=== PATIENT | female | born 1950 | race Caucasian/White ===

== ENCOUNTER → 2019-03-30 13:50 | Outpatient (CLI) | payer MEDICARE, SELFPAY ==
[2019-03-30 13:00] VITALS: BMI 43.0
--- NOTE | 2019-03-30 13:51 | RAD_ITS ---
STUDY: X-RAY CHEST REASON FOR EXAM: Female, 69 years old. History of left breast cancer. TECHNIQUE: Frontal and lateral views of the chest COMPARISON: None. FINDINGS: The lungs are clear. There are no pleural effusions. There is no pneumothorax. The heart is normal in size. The visualized osseous structures are within normal limits. RAD/Chest PA and Lateral IMPRESSION: No acute thoracic pathology. Please note that chest radiographs cannot exclude pulmonary nodules. Electronically Signed: Jamar Wright, at 17:26 EDT Tel , Service support ,
== END ==
PROVIDERS: Family Provider Internal Medicine; PCP Internal Medicine; Referring Provider Internal Medicine Medical Oncology; Visit Provider Internal Medicine Medical Oncology
DX: C50.912 Malignant neoplasm of unspecified site of left female breast (principal)
CPT/HCPCS: 71046

== ENCOUNTER 2021-09-13 17:45 | Emergency (ER) | payer MEDICARE, SELFPAY ==
[2021-09-13 17:46] VITALS: BP 104/71; PULSE 95; RESP 16; TEMP 36; O2SAT 93; BMI 42.5
[2021-09-13 18:12] LABS: Absolute Lymphocyte Count 0.52 X10^3/uL (0.83-4.51); Absolute Neutrophil Count 6.7 X10^3/uL (2.0-7.7); Basophil# 0.02 X10^3/uL; Basophil% 0.3 % (0-1); Hematocrit 32.1 % (37-47); Lymphocyte # 0.52 X10^3/ul (0.83-4.51); Lymphocyte % 6.8 % (19-41); Mean Corp Hgb Conc 34.3 g/dL (32-36); Mean Corpuscular Hgb 28.9 pg (27.0-32.0); Mean Corpuscular Volume 84.3 fL (81-99); Mean Platelet Vol. 10.1 fl (6.2-12.0); Monocyte# 0.33 X10^3/uL; Monocyte% 4.3 % (0-10); NRBC Flagged by Analyzer 0 % (0-5); Neutrophil # 6.73 X10^3/uL (2.7-7.7); Neutrophil % 87.8 % (47-70); POSITIVE DIFFERENTIAL YES; Platelet Count 270 K/mm3 (150-450); RBC Distribution Width CV 12.7 % (11.6-14.6); RBC Distribution Width SD 39.4 fl (35.1-43.9); Red Blood Count 3.81 M/mm3 (4.2-5.4); White Blood Count 7.7 K/mm3 (4.4-11.0)
--- NOTE | 2021-09-13 18:13 | RAD_ITS ---
STUDY: X-RAY CHEST REASON FOR EXAM: Female, 71 years old. Shortness breath. History of breast cancer. TECHNIQUE: Single AP portable view of the chest. COMPARISON: 03/30/2019. FINDINGS: The lungs are well-expanded. There is coarsened interstitial markings. Minimal infiltrate versus atelectasis at both lung bases. There is no demonstrated pleural abnormality. Normal size heart. Normal mediastinum and juvencio. Normal visualized pulmonary arteries. There is atherosclerotic calcification of the aortic arch with tortuosity. There are diffuse degenerative changes of the visualized thoracic spine. There is degenerative osteoarthritis of the bilateral shoulders. There is no demonstrated abnormality of the visualized soft tissue structures of the upper abdomen. RAD/Chest 1 View IMPRESSION: Atelectatic changes versus minimal infiltrate at the lung bases. The study is otherwise unchanged.. Electronically Signed: Chan Sheets DO at 18:44 EDT Tel [phone], Service support ,
[2021-09-13 18:15] LABS: Bedside Glucose 226 mg/dL (70-110)
[2021-09-13 18:33] LABS: ALB/GLOB Ratio 0.7 RATIO (0.9-2.4); AST(SGOT) 35 U/L (15-37); Alanine Aminotransfer ALT/SGPT 27 U/L (13-56); Alkaline Phosphatase 52 U/L (45-117); Anion Gap 8 (5-15); BUN 15 mg/dL (7-18); BUN/Creat Ratio 15.4 RATIO (10-20); Calcium,Total 8.9 mg/dL (8.5-10.1); Chloride 98 mmol/L (98-107); Creatinine, Serum 0.98 mg/dL (0.55-1.02); EST Glomerular Filtration Rate 60 mL/min (>60); Est Glom Filt Rate - Afr Amer 72 mL/min (>60); Estimated Creatinine Clearance 43.56 ml/min; Globulin 4.6 g/dL (2.2-4.2); Glucose 200 mg/dL (74-106); Potassium 3.5 mmol/L (3.5-5.1); Protein, Total 7.6 g/dL (6.4-8.2); Sodium Level 131 mmol/L (136-145)
[2021-09-13 18:36] LABS: Differential Indicated SCAN CRITERIA MET
[2021-09-13 18:58] LABS: Differential Comment SCANNED
[2021-09-13 19:09] VITALS: O2SAT 94
[2021-09-13 19:55] VITALS: O2SAT 94
--- NOTE | 2021-09-13 20:06 | EX.ED.DYSGE1 ---
HPI History of Present Illness Chief Complaint: General Illness Narrative Narrative: 71-year-old female on day 7 of Covid type symptoms. She has generalized weakness and a cough. Her fevers have resolved. She does complain of decreased sense of taste and smell. Patient was vaccinated for COVID-19. She not have any chest pain. She does report that she feels weak but is able to get up and ambulate about. She states she does not go very long distances. PFSH [facility] Medical History Anemia Breast cancer Diabetes mellitus Hyperlipidemia Hypertension Hypothyroidism Left breast sentinel nodes/re-excision Osteopenia Right finger surgery Vision problems Vitamin deficiency Home Medications Calcium 600-Vit D3 200 Tablet 600 mg PO BID 02/12/17 [History Last Taken Unknown] aspirin [Aspir-Low] 81 mg PO DAILY 02/12/17 [History Last Taken Unknown] bisoprolol-hydrochlorothiazide 1 tab PO DAILY 02/12/17 [History Last Taken Unknown] cyanocobalamin (vitamin B-12) [Vitamin B-12] 1,000 mcg PO DAILY 02/12/17 [History Last Taken Unknown] ferrous sulfate [Iron] 325 mg PO DAILY 02/12/17 [History Last Taken Unknown] levothyroxine 125 mcg PO DAILY 02/12/17 [History Last Taken Unknown] metformin 850 mg PO BIDCM 02/12/17 [History Last Taken Unknown] simvastatin [Zocor] 80 mg PO DAILY 02/12/17 [History Last Taken Unknown] Victoza 2-Kwesi 1.2 mg IM DAILY 03/06/17 [History Last Taken Unknown] ascorbic acid (vitamin C) [Vitamin C with Theodora Hips] 500 mg PO DAILY 03/06/17 [History Last Taken Unknown] lisinopril [Zestril] 10 mg PO DAILY 03/30/19 [History Last Taken Unknown] meloxicam [Mobic] 15 mg PO DAILY 03/30/19 [History Last Taken Unknown] Allergy/AdvReac Type Severity Reaction Status Date / Time No Known Allergies Allergy Verified 09/13/21 17:46 Family History Mother Breast cancer CVA (cerebral vascular accident) Arthritis Hyperlipidemia Father Prostate cancer Leukemia Hypertension Surgical History History of cataract extraction History of hand surgery History of lumpectomy History of tubal ligation Hx of section S/P bunionectomy Social History Smoking Status: Never smoker ROS ROS ED Constitutional Constitutional ED: Reports chills and fever(s) Eyes Eyes: Denies blurry vision or diplopia ENT ENT ED: Denies rhinorrhea or sore throat Cardiovascular Cardiovascular: Denies chest pain or palpitations Respiratory/Chest Respiratory/Chest: Reports cough, dyspnea and dyspnea on exertion Gastrointestinal Gastrointestinal: Denies abdominal pain, nausea or vomiting Genitourinary Genitourinary ED: Denies dysuria or hematuria Musculoskeletal Musculoskeletal: Reports myalgias; Denies arthralgias, back pain or neck pain Integumentary Denies rash Neurologic Neurologic: Reports headache(s); Denies paresthesias EXAM Physical Exam Const Vital Signs: 09/13/21 17:46 09/13/21 19:55 Temperature 96.8 F L Temperature Source Temporal Pulse Rate 95 Respiratory Rate 16 Blood Pressure 104/71 Blood Pressure Mean 82 Pulse Ox 93 94 Oxygen Delivery Method Room Air Positive well nourished General Appearance ED: NAD; Negative for pallor HEENT Reports moist mucous membranes Negative for trauma Eyes PERRL and EOMs intact bilaterally Chest Wall inspection of chest normal and palpation of chest normal Resp normal respiratory effort and clear to auscultation bilaterally Cardio regular rate and regular rhythm Neuro oriented x3, CN's II-XII intact bilaterally and no sensory deficits noted Sensorium / Orientation: alert Motor Exam: strength 5/5 throughout Psych mental status grossly normal Skin General Skin Exam: Negative for jaundice or pallor MDM MDM MDM Narrative Medical decision making narrative: Patient presenting on day 7 of Covid symptoms. Her fevers have resolved. She does have decreased sense of taste and smell. Her pulse ox was 93 initially. She is ambulated in the emergency room and her pulse ox does not drop below 91. She is able to ambulate stably. CBC shows that her white blood cell count is 7.7, hemoglobin 11.0, hematocrit 32.1, platelets 270. Renal function and electrolytes are normal. LFTs are normal. Chest x-ray on my interpretation does not appear to show any acute interval changes. Covid testing is positive. The radiologist does agree. Given that the patient is not requiring oxygen I believe she will be safe to be discharged home. She is counseled to monitor her pulse ox at home. She is also counseled to get up and walk around as she can tolerate. Will be referred for monoclonal antibodies. Patient given return precautions. Patient stable for discharge. Impression: 1. COVID-19 pneumonitis 2. Generalized weakness Lab Data Attestation: I reviewed the patient's lab results. Labs: Laboratory Results - last 24 hr 09/13/21 09/13/21 09/13/21 18:00 18:00 18:08 WBC 7.7 RBC 3.81 L Hgb 11.0 L Hct 32.1 L MCV 84.3 MCH 28.9 MCHC 34.3 RDW Std Deviation 39.4 RDW Coeff of Meme 12.7 Plt Count 270 MPV 10.1 Immature Gran % (Auto) 0.800 Neut % (Auto) 87.8 H Lymph % (Auto) 6.8 L [place] % (Auto) 4.3 Eos % (Auto) 0.0 Baso % (Auto) 0.3 Absolute Neuts (auto) 6.7 Absolute Lymphs (auto) 0.52 L Nucleated RBC % 0 Differential Comment SCANNED Sodium 131 L Potassium 3.5 Chloride 98 Carbon Dioxide 25.0 Anion Gap 8 BUN 15 Creatinine 0.98 Estim Creat Clear Calc 43.56 Est GFR (MDRD) Af Amer 72 Est GFR (MDRD) Non-Af 60 BUN/Creatinine Ratio 15.4 Glucose 200 H Calcium 8.9 Total Bilirubin 0.70 AST 35 ALT 27 Alkaline Phosphatase 52 Total Protein 7.6 Albumin 3.0 L Globulin 4.6 H Albumin/Globulin Ratio 0.7 L POC Glucose 226 H Radiography Diagnostic Testing: Clinical Impression(s) from Imaging Studies Chest X-Ray 09/13/21 18:13 IMPRESSION: Atelectatic changes versus minimal infiltrate at the lung bases. The study is otherwise unchanged.. Electronically Signed: Chan Sheets DO at 18:44 EDT Tel [phone], Service support , Discharge Plan Triage Chief Complaint: General Illness ED Provider: Jerry Irving Dx/Rx/DC Orders Instructions: Coronavirus Disease 2019 (COVID-19): Caring for Yourself or Others Prescriptions: No Action metformin 850 MG tablet 850 mg PO BIDCM RF: 0 cyanocobalamin (vitamin B-12) [Vitamin B-12] 1,000 MCG tablet 1,000 mcg PO DAILY RF: 0 bisoprolol-hydrochlorothiazide 1 TAB tablet 1 tab PO DAILY RF: 0 simvastatin [Zocor] 80 MG tablet 80 mg PO DAILY RF: 0 aspirin [Aspir-Low] 81 MG tablet,delayed release (DR/EC) 81 mg PO DAILY RF: 0 ferrous sulfate [Iron (ferrous sulfate)] 325 MG tablet 325 mg PO DAILY RF: 0 levothyroxine 125 MCG tablet 125 mcg PO DAILY RF: 0 Calcium 600-Vit D3 200 Tablet 600 MG tablet 600 mg PO BID RF: 0 Victoza 2-Kwesi 1.2 mg IM DAILY RF: 0 ascorbic acid (vitamin C) [Vitamin C With Theodora Hips] 500 MG tablet 500 mg PO DAILY RF: 0 meloxicam [Mobic] 15 MG tablet 15 mg PO DAILY RF: 0 lisinopril [Zestril] 10 MG tablet 10 mg PO DAILY RF: 0 Other Ambulatory Orders: COVID Outpatient Monoclonal Antibody Referral (Routine) Timeframe: 1 Day Facility: [facility] - Location: [facility] Ordered By: Dr. Jerry Irving Primary Care Provider: Jamie Quiroz Referrals: Jamie Quiroz MD [Primary Care Provider] - Disposition Disposition: Home, Self Care
== END 2021-09-13 20:13 | disposition home or self-care (01) ==
PROVIDERS: Emergency Provider Student in an Organized Health Care Education/Training Program; PCP Internal Medicine
DX: U07.1 COVID-19 (principal); J12.82 Pneumonia due to coronavirus disease 2019; R53.1 Weakness; E11.9 Type 2 diabetes mellitus without complications; I10 Essential (primary) hypertension; D64.9 Anemia, unspecified; E78.5 Hyperlipidemia, unspecified; E03.9 Hypothyroidism, unspecified; M85.80 Other specified disorders of bone density and structure, unspecified site; Z79.82 Long term (current) use of aspirin; Z79.84 Long term (current) use of oral hypoglycemic drugs; Z79.1 Long term (current) use of non-steroidal anti-inflammatories (NSAID); Z79.890 Hormone replacement therapy; Z79.899 Other long term (current) drug therapy
CPT/HCPCS: 71045; 80053; 82962; 85025; 87426; 99283

== ENCOUNTER 2021-09-14 09:53 | Emergency (ER) | payer MEDICARE, SELFPAY ==
[2021-09-14 09:55] VITALS: BP 117/70; PULSE 79; RESP 20; TEMP 35.9; O2SAT 91; BMI 41.1
[2021-09-14 10:15] VITALS: O2SAT 93
--- NOTE | 2021-09-14 10:19 | EDS_ITS ---
HPI History of Present Illness Chief Complaint: Shortness of Breath Informant: patient Narrative Narrative: 71-year-old female presenting on day 8 of Covid symptoms. Patient was diagnosed with Covid last night. She was referred for monoclonal antibody treatment. They called today and talked with her. She noted that her pulse ox was low in the 86-88 range. Patient notes that she has fake nails on. She does not feel any different than she did last night. Last night she had a chest x- ray that was read as atelectatic changes versus minimal infiltrate at the lung bases. Her blood work was negative. [facility] Medical History Anemia Breast cancer Diabetes mellitus Hyperlipidemia Hypertension Hypothyroidism Left breast sentinel nodes/re-excision Osteopenia Right finger surgery Vision problems Vitamin deficiency Home Medications Calcium 600-Vit D3 200 Tablet 600 mg PO BID 02/12/17 [History Last Taken Unknown] aspirin [Aspir-Low] 81 mg PO DAILY 02/12/17 [History Last Taken Unknown] bisoprolol-hydrochlorothiazide 1 tab PO DAILY 02/12/17 [History Last Taken Unknown] cyanocobalamin (vitamin B-12) [Vitamin B-12] 1,000 mcg PO DAILY 02/12/17 [History Last Taken Unknown] ferrous sulfate [Iron] 325 mg PO DAILY 02/12/17 [History Last Taken Unknown] levothyroxine 125 mcg PO DAILY 02/12/17 [History Last Taken Unknown] metformin 850 mg PO BIDCM 02/12/17 [History Last Taken Unknown] simvastatin [Zocor] 80 mg PO DAILY 02/12/17 [History Last Taken Unknown] Victoza 2-Kwesi 1.2 mg IM DAILY 03/06/17 [History Last Taken Unknown] ascorbic acid (vitamin C) [Vitamin C with Theodora Hips] 500 mg PO DAILY 03/06/17 [History Last Taken Unknown] lisinopril [Zestril] 10 mg PO DAILY 03/30/19 [History Last Taken Unknown] meloxicam [Mobic] 15 mg PO DAILY 03/30/19 [History Last Taken Unknown] Allergy/AdvReac Type Severity Reaction Status Date / Time No Known Allergies Allergy Verified 09/14/21 09:58 Family History Mother Breast cancer CVA (cerebral vascular accident) Arthritis Hyperlipidemia Father Prostate cancer Leukemia Hypertension Surgical History History of cataract extraction History of hand surgery History of lumpectomy History of tubal ligation Hx of section S/P bunionectomy Social History Smoking Status: Never smoker ROS ROS ED Constitutional Constitutional ED: Reports fever(s); Denies chills or weight loss Eyes Eyes: Denies change in vision or diplopia ENT ENT ED: Reports other Details: Loss of taste and smell ; Denies ear pain, rhinorrhea or sore throat Cardiovascular Cardiovascular: Denies chest pain, orthopnea, palpitations or racing heartbeat Respiratory/Chest Respiratory/Chest: Reports cough, dyspnea and dyspnea on exertion; Denies orthopnea Gastrointestinal Gastrointestinal: Denies abdominal pain, diarrhea, nausea or vomiting Genitourinary Genitourinary ED: Denies dysuria, hematuria or urinary frequency Musculoskeletal Musculoskeletal: Denies arthralgias or myalgias Integumentary Denies abscess or rash Neurologic Neurologic: Denies headache(s) or weakness Psychiatric Psychiatric: Denies anxiety, depression, suicidal ideation or suicidal thoughts Endocrine Endocrinology: Denies polydipsia, polyphagia or polyuria Allergic/Immunologic Allergic/Immunologic ED: Denies mouth swelling, tongue swelling or urticaria EXAM Physical Exam Const Vital Signs: 09/14/21 09:55 09/14/21 10:15 Temperature 96.7 F L Temperature Source Temporal Pulse Rate 79 Respiratory Rate 20 H Respiratory Effort Short of Breath Respiratory Depth Normal Respiratory Pattern Normal Blood Pressure 117/70 Blood Pressure Mean 85 Pulse Ox 91 Oxygen Delivery Method Room Air Room Air Positive well nourished and well developed General Appearance ED: well developed HEENT Reports normocephalic, head/scalp atraumatic, TM's clear and moist mucous membranes atraumatic Tympanic Membrane ED: Yes TM's clear Eyes PERRL and EOMs intact bilaterally Neck no lymphadenopathy, supple and no JVD Resp normal respiratory effort and clear to auscultation bilaterally Cardio regular rate, regular rhythm and no murmurs GI normal to inspection, nondistended, normoactive bowel sounds and non-tender Palpation: soft Back/Spine no CVA tenderness and normal ROM Extremity normal to inspection General Extremety ED: Negative for edema General Extremity: Negative for edema Neuro oriented x3 and CN's II-XII intact bilaterally Sensorium / Orientation: alert Motor Exam: strength 5/5 throughout Psych mental status grossly normal Mood & Affect: Negative for depressed or tearful Skin no rashes or lesions noted and no wounds MDM MDM MDM Narrative Medical decision making narrative: I think the home pulse oximeter was giving incorrect readings. She is about 95% at rest in the bed. She is not hypoxic with ambulation. We will call back over for the monoclonal antibody and see if she will qualify now. Patient to be discharged home Discharge Plan Triage Chief Complaint: Shortness of Breath ED Provider: Malick Hull Dx/Rx/DC Orders Clinical Impression: COVID-19 Instructions: Coronavirus Disease 2019 (COVID-19): Caring for Yourself or Others Prescriptions: No Action metformin 850 MG tablet 850 mg PO BIDCM RF: 0 cyanocobalamin (vitamin B-12) [Vitamin B-12] 1,000 MCG tablet 1,000 mcg PO DAILY RF: 0 bisoprolol-hydrochlorothiazide 1 TAB tablet 1 tab PO DAILY RF: 0 simvastatin [Zocor] 80 MG tablet 80 mg PO DAILY RF: 0 aspirin [Aspir-Low] 81 MG tablet,delayed release (DR/EC) 81 mg PO DAILY RF: 0 ferrous sulfate [Iron (ferrous sulfate)] 325 MG tablet 325 mg PO DAILY RF: 0 levothyroxine 125 MCG tablet 125 mcg PO DAILY RF: 0 Calcium 600-Vit D3 200 Tablet 600 MG tablet 600 mg PO BID RF: 0 Victoza 2-Kwesi 1.2 mg IM DAILY RF: 0 ascorbic acid (vitamin C) [Vitamin C With Theodora Hips] 500 MG tablet 500 mg PO DAILY RF: 0 meloxicam [Mobic] 15 MG tablet 15 mg PO DAILY RF: 0 lisinopril [Zestril] 10 MG tablet 10 mg PO DAILY RF: 0 Primary Care Provider: Jamie Quiroz Referrals: Jamie Quiroz MD [Primary Care Provider] - As Needed Disposition Disposition: Home, Self Care
[2021-09-14 10:29] VITALS: O2SAT 95
== END 2021-09-14 10:38 | disposition home or self-care (01) ==
LOC: ED 10:27
PROVIDERS: Emergency Provider Emergency Medicine; PCP Internal Medicine
DX: U07.1 COVID-19 (principal); E11.9 Type 2 diabetes mellitus without complications; I10 Essential (primary) hypertension; D64.9 Anemia, unspecified; E78.5 Hyperlipidemia, unspecified; E03.9 Hypothyroidism, unspecified; Z79.84 Long term (current) use of oral hypoglycemic drugs; Z79.82 Long term (current) use of aspirin; Z79.1 Long term (current) use of non-steroidal anti-inflammatories (NSAID); Z79.890 Hormone replacement therapy; Z79.899 Other long term (current) drug therapy
CPT/HCPCS: 99282

== ENCOUNTER 2021-09-14 14:39 | Outpatient (CLI) | payer MEDICARE, SELFPAY ==
[2021-09-14] MEDS: 0.9% Saline Lock 10 ML Syringe IV (14:49)
[2021-09-14 14:55] VITALS: BP 109/57; PULSE 83; RESP 16; TEMP 36.6; O2SAT 92; BMI 42.5
[2021-09-14 15:40] VITALS: BP 110/58; PULSE 82; RESP 16; TEMP 36.8; O2SAT 97
[2021-09-14 16:39] VITALS: BP 122/60; PULSE 78; RESP 16; TEMP 36.6; O2SAT 99
== END 2021-09-14 16:40 | disposition home or self-care (01) ==
LOC: MS3OUT 14:39 → MS3 14:40
PROVIDERS: PCP Internal Medicine; Referring Provider Nurse Practitioner Acute Care; Visit Provider Nurse Practitioner Acute Care
DX: Z23 Encounter for immunization (principal); U07.1 COVID-19
CPT/HCPCS: 99282; J7050; M0245; Q0245; A4216